=== PATIENT | female | born 1980 | race Two or more races ===

== ENCOUNTER 2019-07-10 11:31 | Emergency (ER) | payer OTHER ==
[~2019-07-10] VITALS: Ht 167.6 cm; Wt 68.0 kg
--- NOTE | 2019-07-10 11:59 | NUR ---
COUGH, CONGESTION, AND FEVER SINCE YESTERDAY, PT AWAKE, ALERT. -SOB,. NAD NOTED, VSS, PENDING MD SIDDIQUI
[2019-07-10] MEDS ORDERED: IBUPROFEN 600 MG TABLET PO ONE (12:13)
[2019-07-10] MEDS: IV NS 0.9% 1,000 ML BAG IV ONE (12:37)
[2019-07-10] MEDS: ACETAMINOPHEN 325 MG TABLET PO ONE (12:39)
[2019-07-10] MEDS ORDERED: ACETAMINOPHEN ES 500 MG TABLET ONE (12:41)
[2019-07-10 13:30] VITALS: BP 132/68
--- NOTE | 2019-07-10 14:05 | NUR ---
Patient discharged to home in stable condition. Written and verbal after care instructions given. Patient verbalizes understanding of instruction. IV removed. Catheter intact and site benign. Pressure and 4x4 applied to site. No bleeding noted.
== END 2019-07-10 14:44 | disposition home or self-care (01) ==
LOC: ER 11:36
DX: J06.9 Acute upper respiratory infection, unspecified (principal); F41.9 Anxiety disorder, unspecified; R11.2 Nausea with vomiting, unspecified
CPT/HCPCS: 87804 ×2; 96360; 99283; J7030